=== PATIENT | female | born 1990 | race Caucasian/White ===

== ENCOUNTER 2018-01-08 12:23 | Emergency (ER) | END 2018-01-08 16:53 | disposition home or self-care (01) ==

== ENCOUNTER 2018-06-22 09:01 | Outpatient (CLI) | payer MEDICAID ==
[~2018-06-22 09:01] MED LIST: ACET500C5 PO; FERR27TA PO
[2018-06-22] MEDS ORDERED: PREN-93 PO (10:28)
--- NOTE | 2018-06-22 11:43 | PN ---
Triage Information Date/Time Reason for visit: Abd/pelvic pain Weeks of Gestation 35 weeks /Para Diabetes: none Hypertention: none Objective Heart Rate: 120's Heart Rate Comments Reactive Contractions: >10 Minutes Apart Exam Cervix closed Results/Medications Results 24 hrs Laboratory Tests Test 06/22/18 09:09 06/22/18 10:30 Urine Color YELLOW Urine Clarity SLIGHTLY CLOUDY A Urine pH 7.0 Urine Specific Fleming 1.015 Urine Ketones NEGATIVE Urine Nitrite NEGATIVE Urine Bilirubin NEGATIVE Urine Urobilinogen NEGATIVE Urine Leukocyte Esterase NEGATIVE Urine Microscopic RBC 1 Urine Microscopic WBC 3 Urine Squamous Epithelial Cells FEW Urine Bacteria FEW A Urine Mucus FEW A Urine Hemoglobin NEGATIVE Urine Glucose NEGATIVE Urine Total Protein NEGATIVE Membranes Rupture NEGATIVE Imaging Results [facility] 10/08 Disposition: Discharge Assessment/Plan No sign of labor or SROM. LANDEN HALEY MD Jun 22, 2018 11:43
--- NOTE | 2018-06-22 11:46 | TRIAGE ---
OB Triage Datetime Report Generated by CPN: 06/22/2018 11:45 Datetime: 06/22/2018 11:30 Stage of : OB Triage Maternal Assessment Level of Consciousness: Fully Conscious DTR's/Clonus: DTRs 1+ Headache: Denies Breath Sounds, Left: Clear and Equal Breath Sounds, Right: Clear and Equal Nausea/Vomiting: Denies RUQ Epigastric Pain: Denies Labor Evaluation Frequency: 1 Monitor Mode: External Duration (sec)2399: 50 Quality: Mild Pattern: Normal: <= 5 Contractions in 10 Minutes Resting Tone [place]: Relaxed Heart Rate FHR Baseline Rate: 135 Monitor Mode: External US Variability: Moderate 6-25 bpm Accelerations: 15X15 Decelerations: None Category: Category I Pain Assessment Pain Scale: 3 Pain Presence: Intermittent Pain Type: Cramping Pain Location: Back Pain Goal: 3 Datetime: 06/22/2018 11:03 Vaginal Exam Dilatation (cms): 0.0 Effacement (%): 0 Station: -4 Datetime: 06/22/2018 11:00 Stage of : OB Triage Maternal Assessment Level of Consciousness: Fully Conscious DTR's/Clonus: DTRs 1+ Headache: Denies Blurred Vision: No Respiratory Effort: Unlabored Breath Sounds, Left: Clear and Equal Breath Sounds, Right: Clear and Equal Nausea/Vomiting: Denies RUQ Epigastric Pain: Denies Facial Edema: None Labor Evaluation Frequency: OCC Monitor Mode: External Duration (sec)2399: 20-40 Quality: Mild Pattern: Normal: <= 5 Contractions in 10 Minutes Resting Tone [place]: Relaxed Heart Rate FHR Baseline Rate: 150 Monitor Mode: External US Variability: Moderate 6-25 bpm Accelerations: 15X15 Decelerations: None Category: Category I Pain Assessment Pain Scale: 3 Pain Presence: Intermittent Pain Type: Cramping Pain Location: Back Pain Goal: 3 Datetime: 06/22/2018 10:25 Maternal Assessment Level of Consciousness: Fully Conscious DTR's/Clonus: DTRs 1+ Headache: Denies Blurred Vision: No Respiratory Effort: Unlabored Breath Sounds, Left: Clear and Equal Breath Sounds, Right: Clear and Equal Nausea/Vomiting: Denies RUQ Epigastric Pain: Denies Facial Edema: None Labor Evaluation Frequency: NONE Monitor Mode: External Resting Tone [place]: Relaxed Heart Rate FHR Baseline Rate: 145 Monitor Mode: External US Variability: Moderate 6-25 bpm Accelerations: 15X15 Decelerations: None Category: Category I Membrane Status: Intact Datetime: 06/22/2018 10:00 Stage of : OB Triage Maternal Assessment Level of Consciousness: Fully Conscious DTR's/Clonus: DTRs 1+ Headache: Denies Breath Sounds, Left: Clear and Equal Breath Sounds, Right: Clear and Equal Nausea/Vomiting: Denies RUQ Epigastric Pain: Denies Labor Evaluation Frequency: NONE Monitor Mode: External Resting Tone [place]: Relaxed Heart Rate FHR Baseline Rate: 140 Monitor Mode: External US Variability: Moderate 6-25 bpm Accelerations: 15X15 Decelerations: None Category: Category I Pain Assessment Pain Scale: 0 Pain Presence: None/Denies Pain Type: N/A Pain Goal: 3 Membrane Status: Intact Datetime: 06/22/2018 09:17 Maternal Assessment Level of Consciousness: Fully Conscious DTR's/Clonus: DTRs 1+ Headache: Denies Blurred Vision: No Respiratory Effort: Unlabored Breath Sounds, Left: Clear and Equal Breath Sounds, Right: Clear and Equal Nausea/Vomiting: Denies RUQ Epigastric Pain: Denies Facial Edema: None Labor Evaluation Frequency: NONE Monitor Mode: External Resting Tone [place]: Relaxed Heart Rate FHR Baseline Rate: 140 Monitor Mode: External US Variability: Moderate 6-25 bpm Accelerations: 15X15 Decelerations: None Category: Category I Pain Assessment Pain Scale: 0 Pain Presence: None/Denies Pain Type: N/A Pain Goal: 3 Membrane Status: Intact Datetime: 06/22/2018 09:12 EGA: 35.0 Datetime: 06/22/2018 09:05 Assessment Type: Triage Maternal Assessment Level of Consciousness: Fully Conscious DTR's/Clonus: DTRs 2+; No Clonus Headache: Denies Blurred Vision: No Respiratory Effort: Unlabored; Regular Rhythm; Equal Expansion Breath Sounds, Left: Clear and Equal Breath Sounds, Right: Clear and Equal Nausea/Vomiting: Denies RUQ Epigastric Pain: Denies Lower Extremities Edema: None Degree: None Upper Extremities Edema: None Degree: None Facial Edema: None Fall Risk Assessment History of Falling: (0) No Secondary Diagnosis: (0) No Ambulatory Aid: (0) Bedrest/Nurse Assist IV Therapy: (0) No Gait: (0) Normal/Bedrest/Immobile Mental Status: (0) Oriented to Own Ability Fall Score: 0 Fall Risk Score Definition: No Risk: No action required Datetime: 06/22/2018 08:51 Time of Arrival: 06/22/2018 08:51 Arrived By: Ambulatory Arrived From: Home Chief Complaint: R/P PTL Movement: Present Contractions: Irregular Time Contractions Began: 06/22/2018 05:00 Rupture of Membranes: Denies Vaginal Discharge: Denies Recent Sexual Intercouse: Denies Abdominal Trauma: Not Applicable Additional Patient Complaints: NONE Time Provider Notified: 06/22/2018 09:10 Provider Notified: TERA Initial Plan: NST, BPP AND VE
== END 2018-06-22 11:41 | disposition home or self-care (01) ==
LOC: L-D 09:01 → OBT 09:01
PROVIDERS: ATTEND Obstetrics & Gynecology
DX: O26.893 Other specified pregnancy related conditions, third trimester (principal); R10.2 Pelvic and perineal pain; Z3A.35 35 weeks gestation of pregnancy
CPT/HCPCS: 76818; 81001; 84112; Z7500; 81003; G0463

== ENCOUNTER 2018-07-01 15:52 | Inpatient (IN) | payer MEDICAID ==
[~2018-07-01] VITALS: Ht 152.4 cm; Wt 91.4 kg
[~2018-07-01 15:52] MED LIST changes: -ACET500C5 PO; +PREN-93 PO
[2018-07-01 16:43] VITALS: Ht 152.4 cm; Wt 91.4 kg
[2018-07-01 16:44] VITALS: BP 117/63; PULSE 103; RESP 18
[2018-07-01] MEDS ORDERED: LACTATED RINGER'S 1,000 ML IV ONE (20:30)
[2018-07-01] MEDS ORDERED: ONDANSETRON 4 MG INJ IV PRN (21:00)
[2018-07-01] MEDS ORDERED: BETAMET NA PHOS/AC(6 MG/ML) 2 ML INJ SYG IM SCH (21:00)
[2018-07-01] MEDS ORDERED: TERBUTALINE 1 MG/ML INJ SC ONE ×2 (21:00→23:00)
[2018-07-01] MEDS ORDERED: ACETAMINOPHEN 500 MG TAB PO PRN (22:00)
[2018-07-01] MEDS: LACTATED RINGER'S 1,000 ML IV SCH (22:07)
--- NOTE | 2018-07-02 01:01 | TRIAGE ---
OB Triage Datetime Report Generated by CPN: 07/02/2018 01:01 Datetime: 07/02/2018 00:35 Stage of : Antepartum Temperature Route: Axillary Pain Assessment Pain Scale: 6 Pain Presence: Intermittent Pain Type: Contraction Pain Location: Abdomen; Back Pain Goal: 2 Pain Relief Measures: Comfort Measures Datetime: 07/02/2018 00:33 FHR Baseline Changes: Tachycardia Datetime: 07/02/2018 00:00 Labor Evaluation Frequency: 2-5 Monitor Mode: External Duration (sec)2399: 60-90 Quality: Moderate Pattern: Normal: <= 5 Contractions in 10 Minutes Resting Tone [place]: Relaxed Heart Rate FHR Baseline Rate: 135 Monitor Mode: External US Variability: Moderate 6-25 bpm Accelerations: 15X15 Decelerations: None Category: Category I Datetime: 07/01/2018 23:00 Labor Evaluation Frequency: 2-5 Monitor Mode: External Duration (sec)2399: 50-120 Quality: Moderate Pattern: Normal: <= 5 Contractions in 10 Minutes Resting Tone [place]: Relaxed Heart Rate FHR Baseline Rate: 135 Monitor Mode: External US Variability: Moderate 6-25 bpm Accelerations: 15X15 Decelerations: None Category: Category I Datetime: 07/01/2018 22:45 Vaginal Exam Dilatation (cms): 0.0 Effacement (%): 0 Station: -3 Exam By: RICKIE K RN Cervix, Position: Posterior Datetime: 07/01/2018 22:29 Pain Assessment Pain Scale: 8 Pain Presence: Intermittent Pain Type: Contraction Pain Location: Abdomen; Back Pain Relief Measures: Pain Medication Given; Comfort Measures Datetime: 07/01/2018 22:11 Monitor Mode: External Monitor Mode: External US Datetime: 07/01/2018 22:10 Monitor Mode: External US Datetime: 07/01/2018 22:09 Monitor Mode: External US Datetime: 07/01/2018 22:00 Labor Evaluation Frequency: 1.5-5 Monitor Mode: External Duration (sec)2399: 50-80 Quality: Moderate Pattern: Normal: <= 5 Contractions in 10 Minutes Resting Tone [place]: Relaxed Heart Rate FHR Baseline Rate: 135 Monitor Mode: External US Variability: Moderate 6-25 bpm Accelerations: 15X15 Decelerations: None Category: Category I Datetime: 07/01/2018 21:52 Monitor Mode: External US Pain Assessment Pain Scale: 5 Pain Presence: Intermittent Pain Type: Contraction Pain Location: Abdomen; Back Pain Relief Measures: Comfort Measures Datetime: 07/01/2018 21:09 Assessment Type: Admission Assessment Vaginal Bleeding: None Maternal Assessment Level of Consciousness: Fully Conscious DTR's/Clonus: DTRs 2+; No Clonus Headache: Denies Blurred Vision: No Respiratory Effort: Unlabored; Regular Rhythm; Equal Expansion Breath Sounds, Left: Clear and Equal Breath Sounds, Right: Clear and Equal Nausea/Vomiting: Denies RUQ Epigastric Pain: Denies Lower Extremities Edema: None Degree: None Upper Extremities Edema: None Degree: None Facial Edema: None Fall Risk Assessment History of Falling: (0) No Secondary Diagnosis: (0) No Ambulatory Aid: (0) Bedrest/Nurse Assist IV Therapy: (0) No Gait: (0) Normal/Bedrest/Immobile Mental Status: (0) Oriented to Own Ability Fall Score: 0 Fall Risk Score Definition: No Risk: No action required Pain Assessment Pain Scale: 7 Pain Presence: Intermittent Pain Type: Contraction Pain Location: Abdomen; Back Pain Goal: 2 Datetime: 07/01/2018 21:06 Monitor Mode: External Monitor Mode: External US Datetime: 07/01/2018 21:04 Stage of : Antepartum Datetime: 07/01/2018 21:03 Time of Arrival: 07/01/2018 21:03 EGA: 36.2 Arrived By: Wheelchair Arrived From: OB TRIAGE Datetime: 07/01/2018 20:32 Stage of : OB Triage Labor Evaluation Frequency: 2-4 Monitor Mode: External Duration (sec)2399: 50-140SEC Quality: Mild Pattern: Normal: <= 5 Contractions in 10 Minutes Resting Tone [place]: Relaxed Heart Rate FHR Baseline Rate: 145 Monitor Mode: External US FHR Baseline Changes: No Baseline Change Variability: Moderate 6-25 bpm Accelerations: 15X15 Decelerations: Variable Category: Category II Datetime: 07/01/2018 20:12 Stage of : OB Triage Datetime: 07/01/2018 20:09 Stage of : OB Triage Monitor Mode: External Quality: Mild Pattern: Normal: <= 5 Contractions in 10 Minutes Resting Tone [place]: Relaxed Heart Rate FHR Baseline Rate: 140 Monitor Mode: External US FHR Baseline Changes: No Baseline Change Variability: Moderate 6-25 bpm Accelerations: 15X15 Decelerations: None Category: Category I Vaginal Exam Dilatation (cms): 0.0 Effacement (%): 0 Station: -3 Exam By: ELope Membrane Status: Intact Vaginal Bleeding: None Cervix, Consistency: Moderate Cervix, Position: Posterior Presentation 'A': Cephalic Datetime: 07/01/2018 19:42 Stage of : OB Triage Monitor Mode: External Quality: Mild Resting Tone [place]: Relaxed Heart Rate FHR Baseline Rate: 140 Monitor Mode: External US Pain Assessment Pain Scale: 6 Pain Presence: Intermittent Pain Type: Cramping Pain Location: Abdomen Datetime: 07/01/2018 19:17 Stage of : OB Triage Labor Evaluation Frequency: 2-8 Monitor Mode: External Duration (sec)2399: 30-60 Quality: Mild Pattern: Normal: <= 5 Contractions in 10 Minutes Resting Tone [place]: Relaxed Heart Rate FHR Baseline Rate: 150 Monitor Mode: External US FHR Baseline Changes: No Baseline Change Variability: Moderate 6-25 bpm Accelerations: 15X15 Decelerations: Variable Category: Category II Datetime: 07/01/2018 17:30 Stage of : OB Triage Maternal Assessment Level of Consciousness: Fully Conscious Labor Evaluation Frequency: IRREGULAR Monitor Mode: External Duration (sec)2399: 50-70 Quality: Mild Resting Tone [place]: Relaxed Heart Rate FHR Baseline Rate: 145 Monitor Mode: External US Variability: Moderate 6-25 bpm Accelerations: 15X15 Decelerations: None Category: Category I Pain Assessment Pain Scale: 5 Pain Presence: Constant Pain Type: Ache Pain Location: Abdomen Pain Goal: 3 Membrane Status: Intact Vaginal Bleeding: None Datetime: 07/01/2018 16:56 Assessment Type: Triage Maternal Assessment Level of Consciousness: Fully Conscious DTR's/Clonus: DTRs 2+; No Clonus Headache: Denies Blurred Vision: No Respiratory Effort: Unlabored; Regular Rhythm; Equal Expansion Breath Sounds, Left: Clear and Equal Breath Sounds, Right: Clear and Equal Nausea/Vomiting: Denies RUQ Epigastric Pain: Denies Lower Extremities Edema: None Degree: None Upper Extremities Edema: None Degree: None Facial Edema: None Fall Risk Assessment History of Falling: (0) No Secondary Diagnosis: (0) No Ambulatory Aid: (0) Bedrest/Nurse Assist IV Therapy: (0) No Gait: (0) Normal/Bedrest/Immobile Mental Status: (0) Oriented to Own Ability Fall Score: 0 Fall Risk Score Definition: No Risk: No action required Datetime: 07/01/2018 16:32 Time of Arrival: 07/01/2018 15:50 EGA: 36.2 Arrived By: Ambulatory Arrived From: Home Chief Complaint: PT HERE C/O EPIGASTRIC PAIN SINCE 1000 Movement: Present Contractions: Denies/Absent Rupture of Membranes: Denies Vaginal Bleeding: None Vaginal Discharge: Denies Recent Sexual Intercouse: Denies Abdominal Trauma: Not Applicable Patient Complaints: Epigastric Pain Time Provider Notified: 07/01/2018 17:05 [facility] Initial Plan: EFM/CBC/CMP/BPP/UA/AMYLASE/LIPASE/LIVER PANEL Datetime: 07/01/2018 16:27 Monitor Mode: External Monitor Mode: External US Datetime: 06/22/2018 09:12 EGA: 35.0 Datetime: 06/22/2018 09:05 Fall Score: 0 Fall Risk Score Definition: No Risk: No action required
[2018-07-02] MEDS ORDERED: CEFAZOLIN 2 GM/50 ML (PMX) 50 ML IVPB SCH ×2 (01:30→06:00)
[2018-07-02] MEDS ORDERED: MISOPROSTOL 200 MCG TAB PR PRN ×2 (01:30→03:30)
[2018-07-02] MEDS ORDERED: CARBOPROST 250 MCG INJ IM PRN ×2 (01:30→03:30)
[2018-07-02] MEDS ORDERED: METHYLERGONOVINE 0.2 MG INJ IM PRN ×2 (01:30→03:30)
[2018-07-02] MEDS ORDERED: OXYTOCIN 30 UNITS/LR 500 ML IV PRN ×2 (01:30→03:30)
[2018-07-02] MEDS ORDERED: OXYTOCIN 30 UNITS/LR 500 ML IV SCH ×2 (01:30→03:01)
--- NOTE | 2018-07-02 01:55 | PREAC ---
Date/Time of Note Date/Time of Note DATE: 07/02/18 TIME: 01:54 Anesthesia Eval and Record Evaluation Time Pre-Procedure Interview DATE: 07/02/18 TIME: 01:54 Age 27 Sex female NPO: 8 hrs Preoperative diagnosis Planned procedure repeat c/s Past Medical History Past Medical History: Includes GI: Obesity Surgery & Anesthesia Issues No known issue Meds Anticoagulation: No Beta Zeinab within 24 hr: No Reason Beta Zeinab not given: Pt. not on B-Zeinab Reported Medications Vit No.124/Iron/FA ( Vitamin Tablet) 1 Each Tablet, 1 EACH PO, TAB 06/22/18 Ferrous Sulfate (Iron) 1 Tab Tablet, 1 PO DAILY 01/10/11 Current Medications Lactated Ringer's 1,000 ml @ 125 mls/hr Q8H IV Last administered on 07/01/18at 22:07; Admin Dose 125 MLS/HR; Start 07/01/18 at 20:30 Betamethasone Acet/Betameth SodPhos (Celestone Soluspan) 12 mg Q12H IM Last administered on 07/01/18at 21:49; Admin Dose 12 MG; Start 07/01/18 at 21:00; Stop 07/02/18 at 09:01 Ondansetron HCl (Zofran Inj) 4 mg Q6H PRN IV NAUSEA/VOMITING; Start 07/01/18 at 21:00 Cefazolin Sodium/ Dextrose 50 ml @ 100 mls/hr ONCE IVPB ; Start 07/02/18 at 01:30 Oxytocin/Lactated Ringer's 500 ml @ 125 mls/hr POST IV ; Start 07/02/18 at 01:30 Oxytocin/Lactated Ringer's 500 ml @ 0 mls/hr ONCE PRN IV .VAGINAL BLEEDING; Start 07/02/18 at 01:30 Methylergonovine Maleate (Methergine) 0.2 mg ONCE PRN IM .VAGINAL BLEEDING; Start 07/02/18 at 01:30 Carboprost Tromethamine (Hemabate) 250 mcg ONCE PRN IM .VAGINAL BLEEDING; Start 07/02/18 at 01:30 Misoprostol (Cytotec) 1,000 mcg ONCE PRN ID .VAGINAL BLEEDING; Start 07/02/18 at 01:30 Meds reviewed: Yes Allergies Coded Allergies: avocado (Verified Allergy, Intermediate, rash, 07/01/18) Allergies Reviewed: Yes Labs/Studies Labs Reviewed: Reviewed by anesthesiologist Result Diagram: 07/01/18 1730 07/01/18 1730 Laboratory Tests 07/01/18 17:30 Blood Bank Test 07/01/18 17:30 Antibody Screen NEGATIVE Blood Type O POSITIVE Rh Immune Globulin Candidate NO test: Positive Pre-procedure Exam Last vitals Vital Signs Date Temp Pulse Resp B/P (MAP) Pulse Ox O2 O2 Flow FiO2 Time Delivery Rate 07/01/18 97.9 103 18 117/63 Room Air 16:44 (81) Airway: Adequate mouth opening, Adequate thyromental dist Mallampati: Mallampati II Teeth: Normal Lung: Normal Heart: Normal ASA Physical Status ASA physical status: 2 Emergency: None Planned Anesthetic Neuraxial: Spinal Planned Pain Management Sub-arachniod narcotics Pre-operative Attestations Prior to commencing anesthesia and surgery, the patient was re-evaluated, there was verification of: *The patient's identity *The results of appropriate recent lab work and preoperative vital signs *The above evaluation not changing prior to induction *Anesthetic plan, risk benefits, alternative and complications discussed with patient/family; questions answered; patient/family understands, accepts and wishes to proceed. GERRY CAMPA July 02, 2018 01:54
[2018-07-02] MEDS ORDERED: morphine SULFATE/PF (10 MG/10 ML) INJ ONE (01:57)
--- NOTE | 2018-07-02 02:01 | PREOPHP ---
DATE OF ADMISSION: 07/01/2018 HISTORY OF PRESENT ILLNESS: Ms. Georgina Sandoval is a 27-year-old 4, para 2, EDC 07/27/2018 , intrauterine at 36 weeks and 3 days gestational age, presented to triage complaining of u terine contractions since 11:00 yesterday morning. She reports her contractions, pain scale of 7 to 8/10. She denies any vaginal bleeding or discharge. She has a significant history of gallstones. H er care took place at [facility]. PAST MEDICAL HISTORY: None. MEDICATIONS: vitamins. PAST SURGICAL HISTORY: x2 previous section. OBSTETRIC HISTORY: x2 previous section, x1 missed AB. GYNECOLOGIC HISTORY: 14, regular 3 to 4 days. Denies any sexually transmitted infections. Sexually active with 1 partner. SOCIAL HISTORY: Denies any smoking, drugs or alcohol. FAMILY HISTORY: None. REVIEW OF SYSTEMS: All within normal except history of present illness. PHYSICAL EXAMINATION: HEENT: Within normal. LUNGS: CTA bilateral. CARDIOVASCULAR: S1, S2, regular rhythm. ABDOMEN: Gravid, nontender. Negative CVA bilateral. EXTREMITIES: Negative edema. No calf tenderness. PELVIC: Vaginal exam 1 to 2 cm dilated, 50% effaced, -3 station. heart tracing category 1. T oco: Regular contractions. ASSESSMENT: Intrauterine at 36 weeks and 3 days gestational age, in labor, previou s section x2, desires elective repeat delivery, declined . PLAN: Consent for repeat delivery. Risks, benefits and alternatives explained. All questi ons were answered. Dictated By: CHANDRAKANT ROBERSON/FRANCISCO JAVIER Conf#: [id number] DID#: [id number]
[2018-07-02] MEDS ORDERED: FENTAnyl 50 MCG/ML VIAL ONE (02:28)
[2018-07-02] MEDS ORDERED: DIPHENHYDRAMINE 50 MG INJ IV PRN ×2 (02:30)
[2018-07-02] MEDS ORDERED: HYDROmorphONE 0.5 MG/0.5 ML SYG IV PRN ×2 (02:30)
[2018-07-02] MEDS ORDERED: ALBUTEROL 0.083% (NEB) 2.5 MG/3 ML AMP HHN PRN (02:30)
[2018-07-02] MEDS ORDERED: METOCLOPRAMIDE 10 MG INJ IV PRN (02:30)
[2018-07-02] MEDS ORDERED: ONDANSETRON 4 MG INJ IV PRN ×3 (02:30→03:30)
[2018-07-02] MEDS ORDERED: HYDROmorphONE 1 MG/5 ML IV SYRINGE IV PRN ×3 (02:30)
[2018-07-02] MEDS ORDERED: KETOROLAC 30 MG INJ IV PRN ×2 (02:30)
[2018-07-02] MEDS ORDERED: NALOXONE (0.4 MG/ML) INJ IV PRN (02:30)
[2018-07-02] MEDS ORDERED: FENTAnyl 50 MCG/ML VIAL IV PRN ×3 (02:30)
--- NOTE | 2018-07-02 03:01 | OPPN ---
Date/Time of Note Date/Time of Note DATE: 07/02/18 TIME: 03:00 Operative Report Planned Procedure Procedure date July 02, 2018 Procedure(s) repeat low transverse CD Performed by see signature line Button Maker And Installer: ALDA SMILEY MD 2nd Button Maker And Installer none Anesthesiologist: GERRY CAMPA Pre-procedure diagnosis Intrauterine at 36 weeks and 3 days gestational age, in labor, previous section x2, desires elective repeat delivery, declined . [id number] Anesthesia Type: [id number] spinal Post-Procedure Post-procedure diagnosis same Findings a viable female 8/9 weight 2810 grams Estimated Blood Loss: 500 - 600 mls (500) Specimen(s) none Grafts/Implant(s) none Complication(s) none CHANDRAKANT CALABRESE MD July 02, 2018 03:01
[2018-07-02] MEDS ORDERED: NACL 0.9% 3 ML SYG IV SCH (03:30)
[2018-07-02] MEDS ORDERED: LANOLIN HPA 1 PKT TOP PRN (03:30)
[2018-07-02] MEDS ORDERED: WITCH HAZEL/GLYCERIN PAD PR PRN (03:30)
[2018-07-02] MEDS ORDERED: ACETAMINOPHEN 325 MG TAB PO PRN (03:30)
[2018-07-02] MEDS ORDERED: OXYCODONE/ASPIRIN (4.88/325) TAB PO PRN ×2 (03:30)
[2018-07-02] MEDS ORDERED: DIPHENHYDRAMINE 25 MG CAP PO PRN (03:30)
[2018-07-02] MEDS: LACTATED RINGER'S 1,000 ML IV SCH ×4 (04:28→23:30)
[2018-07-02] MEDS: IBUPROFEN 800 MG TAB PO SCH ×3 (06:00→18:00)
[2018-07-02 06:15] VITALS: BP 108/54; PULSE 75; RESP 18
[2018-07-02] MEDS ORDERED: PHENYLephrine (100 MCG/ML) 10ML SYG ONE (07:00)
[2018-07-02] MEDS ORDERED: OXYTOCIN 30 UNITS/LR 500 ML BAG IV ONE (07:00)
[2018-07-02 08:00] VITALS: BP 105/58; PULSE 73; RESP 14
[2018-07-02] MEDS: SENNA/DOCUSATE NA (8.6MG/50MG) TAB PO SCH ×2 (09:27→21:45)
[2018-07-02 12:15] VITALS: BP 94/51; PULSE 69; RESP 20
[2018-07-02 16:30] VITALS: BP 98/52; PULSE 70; RESP 18
[2018-07-02] MEDS: CEFAZOLIN 2 GM/50 ML (PMX) 50 ML IVPB SCH (18:13)
[2018-07-02 21:05] VITALS: BP 103/59; PULSE 74; RESP 19
[2018-07-03] VITALS: BP 100/54; PULSE 65; RESP 18
[2018-07-03] MEDS: CEFAZOLIN 2 GM/50 ML (PMX) 50 ML IVPB SCH (01:50)
[2018-07-03] MEDS: IBUPROFEN 800 MG TAB PO SCH ×4 (06:00→17:36)
[2018-07-03] MEDS: LACTATED RINGER'S 1,000 ML IV SCH ×2 (06:05→15:30)
[2018-07-03] MEDS ORDERED: SUCCINYLCHOLINE CHLORIDE 100 MG/5 ML SYG IV ONE (08:11)
[2018-07-03] MEDS ORDERED: HYDROmorphONE 2 MG/ML SYG ONE (08:11)
[2018-07-03] MEDS ORDERED: ROCURONIUM 50 MG INJ ONE (08:11)
[2018-07-03] MEDS ORDERED: PROPOFOL 20 ML ONE (08:11)
[2018-07-03] MEDS ORDERED: FENTAnyl 50 MCG/ML VIAL ONE (08:11)
--- NOTE | 2018-07-03 08:11 | QN ---
Documentation Comment progress note pod 1 patient seen and evaluated no complaints vs stable afebrile ab c/d/i no distention extremity no edema no calf tenderness a/ sp cd pod 1 stable afebrile p/ iron supplement encourage ambulation CHANDRAKANT CALABRESE MD July 03, 2018 08:11
[2018-07-03 08:30] VITALS: BP 115/72; PULSE 78; RESP 18
--- NOTE | 2018-07-03 08:53 | OPR ---
DATE OF OPERATION: 07/03/2018 PREOPERATIVE DIAGNOSES: Intrauterine at 36 weeks and 3 days gestational age, in la bor, previous section x2, desires elective repeat delivery, declined vaginal after . POSTOPERATIVE DIAGNOSES: Intrauterine at 36 weeks and 3 days gestational age, in l abor, previous section x2, desires elective repeat delivery, declined vaginal after . OPERATION PERFORMED: Repeat low transverse delivery. SURGEON: Chandrakant Calabrese M.D. OUTSOLE CEMENTER: Dr. Cedeno. ANESTHESIA: Spinal. COMPLICATIONS: None. ESTIMATED BLOOD LOSS: 500 mL. FINDINGS: A viable female, 8 and 9 respectively at 1 and 5 minutes, weight 2810 grams. DESCRIPTION OF PROCEDURE: After explaining the risks, benefits and alternatives to the patient, cons ent signed in chart, the patient was taken to the operating room where spinal anesthesia was found to be adequate. She was then prepared and draped in normal sterile fashion in dorsal supine position w ith a leftward tilt. A Pfannenstiel skin incision was made with a scalpel and carried to the underly ing of the fascia. The fascia was incised in midline, incision was extended laterally with Buck scis sors. The superior aspect of the fascial incision was grasped with curved clamps, elevated and the u nderlying rectus muscles dissected off bluntly. Attention was then turned to the inferior aspect inc ision, which in similar fashion was grasped, tented up with curved clamps and rectus muscles dissecte d off bluntly. The rectus muscle was in midline, peritoneum identified, tented up, and sha rply with Metzenbaum scissors. The peritoneal incision was extended superiorly inferiorly with good visualization of bladder. The bladder blade was inserted and the vesicular peritoneum identified, gr asped with pickups and sharply with Metzenbaum scissors. This incision was extended laterally and th e bladder flap created digitally. The bladder blade was then reinserted and lower segment incised in transverse fashion with a scalpel. The uterine incision was extended laterally. The bladder blade was removed and the 's head delivered atraumatically. The nose and mouth were suctioned and co rd clamped and cut. The was handed off to waiting car manager. The placenta was then remove d. The uterus was exteriorized and cleared of all clots and debris. The uterine incision was repair ed with 1-0 chromic in a running locked fashion. A second layer of same suture was used for imbricat ion obtaining excellent hemostasis. The uterus was returned to the abdomen. The gutters were cleare d of all clots. The peritoneum and rectus abdominis muscles were reapproximated with 0 Vicryl. The fascia was reapproximated with 0 Vicryl. The subcutaneous tissue was reapproximated with 2-0 plain g ut. The skin was closed with absorbable tomer. The patient tolerated procedure well. All counts were correct. The patient was taken to recovery room in stable condition. Dictated By: CHANDRAKANT ROBERSON/FRANCISCO JAVIER Conf#: [id number] DID#: [id number] CC: CHANDRAKANT CALABRESE MD;*EndCC*
[2018-07-03] MEDS ORDERED: SUGAMMADEX SODIUM 200 MG/2 ML VIAL IV ONE ×2 (09:14→09:15)
[2018-07-03] MEDS: SENNA/DOCUSATE NA (8.6MG/50MG) TAB PO SCH ×2 (09:19→20:43)
[2018-07-03] MEDS: FERROUS SULFATE (EC) 325 MG TAB PO SCH ×2 (09:19→20:43)
--- NOTE | 2018-07-03 11:27 | PAC ---
Date/Time of Note Date/Time of Note DATE: 07/03/18 TIME: 11:27 Post-Anesthesia Notes Post-Anesthesia Note Last documented vital signs Vital Signs Date Temp Pulse Resp B/P (MAP) Pulse Ox O2 O2 Flow FiO2 Time Delivery Rate 07/03/18 98.3 78 18 115/72 Room Air 08:30 (86) 07/03/18 98 00:00 Activity: WNL Respiratory function: WNL Cardiovascular function: WNL Mental status: Baseline Pain reasonably controlled: Yes Hydration appropriate: Yes Nausea/Vomiting absent: Yes GERRY CAMPA July 03, 2018 11:27
[2018-07-03 16:25] VITALS: BP 108/69; PULSE 75; RESP 18
[2018-07-03 20:30] VITALS: BP 107/58; PULSE 74; RESP 19
[2018-07-04] MEDS: IBUPROFEN 800 MG TAB PO SCH ×5 (02:35→23:41)
[2018-07-04 04:10] VITALS: BP 109/54; PULSE 70; RESP 19
[2018-07-04 08:30] VITALS: BP 96/60; PULSE 70; RESP 18
[2018-07-04] MEDS: SENNA/DOCUSATE NA (8.6MG/50MG) TAB PO SCH ×2 (09:22→21:06)
[2018-07-04] MEDS: FERROUS SULFATE (EC) 325 MG TAB PO SCH ×2 (09:22→21:06)
--- NOTE | 2018-07-04 15:31 | PN ---
Date/Time of Note Date/Time of Note DATE: 07/04/18 TIME: 15:28 OB Subjective Subjective Subjective Denies any nausea vomiting. Denies any fever or chills. Urinated. Denies any shortness of breath or chest pain. Passed flatus. Breast-feeding. OB Objective Objective Objective General appearance: Alert and oriented x4 does not appear to be in any acute distress Abdomen: Soft, fundus firm and palpable in appropriate tenderness on abdominal exam. Incision: Clean dry and intact Extremities: No calf tenderness, no click no edema no cord palpable Lungs: Clear to auscultation bilaterally Breast: With no evidence of mastitis or fissure VS - Last 72 Hours, by Label Date Temp Pulse Resp B/P (MAP) Pulse Ox O2 O2 Flow FiO2 Time Delivery Rate 07/04/18 98.1 70 18 96/60 (72) Room Air 08:30 07/04/18 98.0 70 19 109/54 Room Air 04:10 (72) 07/03/18 98.3 74 19 107/58 Room Air 20:30 (74) 07/03/18 98.4 75 18 108/69 16:25 (82) 07/03/18 98.3 78 18 115/72 Room Air 08:30 (86) 07/03/18 97.5 65 18 100/54 98 Room Air 00:00 (69) 07/02/18 98.3 74 19 103/59 99 Room Air 21:05 (74) 07/02/18 98.2 70 18 98/52 (67) Room Air 16:30 07/02/18 98.3 69 20 94/51 (65) 97 Room Air 12:15 07/02/18 98.6 73 14 105/58 100 Room Air 08:00 (74) 07/02/18 98.4 75 18 108/54 99 Room Air 06:15 (72) 07/01/18 97.9 103 18 117/63 Room Air 16:44 (81) OB Assessment/Plan Other Assessment: Postoperative day #2 Status post repeat section Doing well Routine postop care Anticipate DC home tomorrow ALDA SMILEY MD July 04, 2018 15:31
[2018-07-04 15:48] VITALS: BP 98/54; PULSE 81; RESP 18
[2018-07-04 20:00] VITALS: BP 107/62; PULSE 62; RESP 18
[2018-07-05 04:00] VITALS: BP 111/50; PULSE 77; RESP 18
[2018-07-05] MEDS: IBUPROFEN 800 MG TAB PO SCH ×2 (05:14→12:15)
[2018-07-05 09:15] VITALS: BP 107/58; PULSE 67; RESP 18
[2018-07-05] MEDS: SENNA/DOCUSATE NA (8.6MG/50MG) TAB PO SCH (09:37)
[2018-07-05] MEDS: FERROUS SULFATE (EC) 325 MG TAB PO SCH (09:37)
--- NOTE | 2018-07-05 10:12 | QN ---
Documentation Comment PoD#2 is stable afebrile tolerates diet No VB +flatus +voids VS stable Gen NAD Abd soft NT ND Incision intact Genitalia No blood at perineum --->Discharge plan tomorrow BRITTANI VENCES M.D. July 05, 2018 10:12
--- NOTE | 2018-07-06 13:10 | DELSUM ---
Delivery Summary A-C Datetime Report Generated by CPN: 07/06/2018 13:10 DELIVERY PERSONNEL Risk Control Product Liability Director: Rubenherbert Brigidajulian MATERNAL INFORMATION Delivery Anesthesia: Spinal Medications in Delivery: see anesthesia record Delivery QBL (ml): 600 Placenta Cultured: No Maternal Complications: Other Other Maternal Complications: labor and gallstones RN Comments: marvin jamil RT LABOR SUMMARY EDC: 07/27/2018 00:00 No. Babies in Womb: 1 Attempted: No Labor Anesthesia: None LABOR INFORMATION Reason for Induction: Not Applicable Onset of Labor: 07/01/2018 10:00 Oxytocin: N/A Group B Beta Strep: Negative Antibiotics # of Doses: ancef x1 Antibiotics Time of Last Dose: 07/02/2018 02:11 Steroids Given: None Reason Steroids Not Administered: Not Applicable MEMBRANES Membranes Rupture Method: Artificial Rupture of Membranes: 07/02/2018 02:25 Length of Rupture (hr): 0.00 Amniotic Fluid Color: Clear Amniotic Fluid Amount: Large Amniotic Fluid Odor: None STAGES OF LABOR Stage 3 hr: 0 Stage 3 min: 1 Total Time in Labor hr: 16 Total Time in Labor min: 26 CSECTION DELIVERY Primary Indication: > 2 Previous CSections Secondary Indication: Other Other Secondary Indication: labor CSection Urgency: Non Elective CSection Incidence: Repeat Labor: Labor Elective: Nonelective CSection Incision: Lower Uterine Transverse BABY A INFORMATION Infant Delivery Date/Time: 07/02/2018 02:25 Method of Delivery: Born in Route : No : N/A Forceps: N/A Vacuum Extraction: N/A Shoulder Dystocia : N/A SHOULDER DYSTOCIA BABY A Delivery Date/Time: 07/02/2018 02:25 PRESENTATION/POSITION BABY A Presentation: Cephalic Cephalic Presentation: Vertex Vertex Position: Right Occipital Anterior Breech Presentation: N/A PLACENTA INFORMATION BABY A Placenta Delivery Time : 07/02/2018 02:26 Placenta Method of Delivery: Manual Removal Placenta Status: Delivered SCORES BABY A Heart Rate 1 min: >100 bpm Resp Effort 1 min: Good Cry Reflex Irritability 1 min: Cough/Sneeze/Pulls Away Muscle Tone 1 min: Active Motion Color 1 min: Blue/Pale Resuscitation Effort 1 min: Tactile Stimulation SCORE 1 MIN: 8 Heart Rate 5 min: >100 bpm Resp Effort 5 min: Good Cry Reflex Irritability 5 min: Cough/Sneeze/Pulls Away Muscle Tone 5 min: Active Motion Color 5 min: Body [place], Extremit Blue Resuscitation Effort 5 min: N/A SCORE 5 MIN: 9 INFANT INFORMATION BABY A Gestational Age at Delivery: 36.3 Gestational Status: Late - 34- 36.6 Weeks Infant Outcome : Liveborn Condition : Stable Infant Sex: Female IDENTIFICATION/MEDS BABY A ID Band Number: [id number] ID Band Location: Right Leg; Left Arm Sensor Applied: Yes Sensor Number: [id number] Sensor Location : Cord Clamp Vitamin K Given : Not Given Erythromycin Given: Not Given WEIGHT/LENGTH BABY A Birthweight (gm): 2810 Weight (lb): 6 Weight (oz): 3 Length (in): 18.25 Infant Length (cm): 46.36 CORD INFORMATION BABY A No. Cord Vessels: 3 Nuchal Cord : N/A Cord Blood Taken: Yes Banking/Donate Info: n/a Infant Suction: Mouth; Nose ASSESSMENT BABY A Complications: None Physical Findings at Delivery: Within Normal Limits Infant Respirations: Appears Normal Press Brake Operator/ALS Called : Yes Infant Care By: instrument person and RT Transferred To: Remains with Mother
== END 2018-07-05 13:09 | disposition home or self-care (01) | DRG 786 ==
LOC: OBT 15:52 → L-D 15:53 → OBT 20:33 → L-D 21:00 → PP1 07-02 05:51
PROVIDERS: ADMIT Obstetrics & Gynecology; ATTEND Obstetrics & Gynecology
PROC: 10D00Z1 Extraction of Products of Conception, Low, Open Approach (ICD-10-PCS; principal; 2018-07-03)
DX: O65.5 Obstructed labor due to abnormality of maternal pelvic organs (principal); O60.13X0 Preterm labor second trimester with preterm delivery third trimester, not applicable or unspecified; O34.211 Maternal care for low transverse scar from previous cesarean delivery; Z3A.36 36 weeks gestation of pregnancy; Z37.0 Single live birth
CPT/HCPCS: 76705; 76815; 76818; 80053; 80076; 81001; 81003; 82150; 83690; 85025; 85610; 85730; 86592; 86850; 86900; 86901; 87340; 99464; G0463; J0690; J0702; J1170; J1200; J1885; J2274; J2370; J2405; J2590; J3010; J3105; J7120